=== PATIENT | male | born 1990 | race Two or more races ===

== ENCOUNTER 2025-05-06 19:00 | Emergency (ER) | payer SELFPAY ==
[2025-05-06 19:24] LABS: BASOPHILS ABSOLUTE AUTO 0.0 K/mm3 (0.0-0.2); BASOPHILS PERCENT AUTO 0.3 % (0.0-1.0); EOSINOPHILS ABSOLUTE AUTO 0.3 K/mm3 (0.0-0.4); EOSINOPHILS PERCENT AUTO 2.1 % (0.0-6.0); IMMATURE GRAN ABSOLUTE AUTO 0.11 K/mm3 (0.00-0.05); IMMATURE GRAN PERCENT AUTO 0.9 % (0.0-0.4); LYMPHOCYTES ABSOLUTE AUTO 3.5 K/mm3 (1.0-4.8); LYMPHOCYTES PERCENT AUTO 28.7 % (24.0-44.0); MEAN PLATELET VOLUME 11.1 fl (9.4-12.4); MONOCYTES ABSOLUTE AUTO 0.7 K/mm3 (0.0-0.8); MONOCYTES PERCENT AUTO 5.6 % (0.0-8.0); NEUTROPHILS ABSOLUTE AUTO 7.6 K/mm3 (1.8-7.7); NEUTROPHILS PERCENT AUTO 62.4 % (41.0-71.0); NRBC ABSOLUTE 0.00 (0.00-0.02); NRBC PERCENT 0.0 % (0.0-0.2); PLATELET COUNT,PLT 326 K/mm3 (150-400); RED BLOOD CELL COUNT 5.48 M/mm3 (4.52-5.90); WHITE BLOOD CELL COUNT,WBC 12.18 K/mm3 (3.9-11.3)
[2025-05-06] MEDS ORDERED: Sodium Chloride 0.9% 10 ML Syringe FLUSH PRN (19:37)
[2025-05-06] MEDS: Sodium Chloride 0.9% 10 ML Syringe FLUSH PRN (19:38)
[2025-05-06] MEDS: Iopamidol 755 Mg/ML 100 ML Bottle IVPUSH ONE (19:38)
[2025-05-06 19:45] LABS: INR 0.96
[2025-05-06 19:47] LABS: PTT,PARTIAL THROMBOPLSTIN TIME 20.8 SECONDS (21.7-31.4)
[2025-05-06 19:52] LABS: A/G RATIO 1.1 (1-2); ALANINE AMINOTRANSFERASE,ALT 46 U/L (16-63); ASPARTATE AMNIOTRANSFERASE,AST 22 U/L (15-37); BILIRUBIN TOTAL 0.2 mg/dL (0.2-1.0); BLOOD UREA NITROGEN,BUN 16 mg/dL (7-18); CARBON DIOXIDE,CO2 22 mEq/L (21-32); CHLORIDE,CL 105 mEq/L (98-107); CREATINE KINASE,CK 313 U/L (39-308); CREATININE 1.1 mg/dL (0.7-1.3); ESTIMATED GFR 91 mL/min (>60); GLUCOSE RANDOM 143 mg/dL (70-99); POTASSIUM,K 3.2 mEq/L (3.5-5.1); PROTEIN TOTAL,TP 7.6 g/dl (6.4-8.2); SODIUM,NA 142 mEq/L (136-145); TROPONIN I HIGH SENSITIVITY 5 pg/mL (<=76)
[2025-05-06 19:53] LABS: ETHANOL BLOOD MEDICAL 0.00 gm% (0.00)
[2025-05-06 20:01] LABS: BUPRENORPHINE SCREEN,URINE NEGATIVE (CUTOFF=10); METHADONE SCREEN, URINE NEGATIVE (CUT0FF=200); METHAMPHETAMINES SCREEN, URINE NEGATIVE (CUTOFF=500); OXYCODONE SCREEN,URINE NEGATIVE (CUT0FF=100); THC SCREEN,URINE 20 NG/ML NEGATIVE (CUTOFF=50)
[2025-05-06 20:04] LABS: AMPHETAMINES SCREEN, URINE NEGATIVE (CUTOFF=500)
[2025-05-06] MEDS: Potassium Chloride 20 MEQ Tab.ER PO STA (20:19)
== END 2025-05-06 20:30 | disposition home or self-care (01) ==
LOC: JD.ED 19:00
DX: G51.0 Bell's palsy (principal); E87.6 Hypokalemia; Z79.899 Other long term (current) drug therapy
CPT/HCPCS: 36415; 70450; 70496; 70498; 80053; 80306; 80307; 82550; 82947; 83735; 84484; 85025; 85610; 85730; 93005; 99285; A9270; J7512; Q9967; 93010; 99284